=== PATIENT | male | born 1990 | race Caucasian/White ===

== ENCOUNTER 2018-07-14 23:51 | Emergency (ER) | payer SELFPAY ==
[2018-07-15] MEDS ORDERED: LIDOCAINE 1%/EPINEPHRINE INJ 20 ML VIAL INJ ONE (00:21)
--- NOTE | 2018-07-15 01:00 | ER Document Report ---
ED General - General Chief Complaint: Laceration Stated Complaint: FINGER LACERATION Time Seen by Provider: 07/15/18 00:54 Notes: Patient is a 27-year-old male who presents after sustaining a laceration to the volar pad of his left middle finger. This occurred when he accidentally stuck himself with a razor blade that was open in his pocket after he reached into the pocket. He states that since that time there has been active bleeding from the area which he has attempted to control with direct pressure with moderate success. He does note a severe, throbbing, constant pain to the area. Touching the area worsens the pain. Nothing improves the pain. No history of similar injuries in the past. He has had a tetanus shot within the last 1 year. He denies any additional injuries or concerns. - Related Data Allergies/Adverse Reactions: amoxicillin Allergy (Verified 07/15/18 00:51) Past Medical History - General Information source: Patient - Social History Smoking Status: Current Every Day Smoker Chew tobacco use (# tins/day): No Frequency of alcohol use: None Drug Abuse: None Lives with: Family Family History: Reviewed & Not Pertinent Patient has suicidal ideation: No Patient has homicidal ideation: No Renal/ Medical History: Denies: Hx Peritoneal Dialysis Review of Systems - Review of Systems Notes: Constitutional: Negative for fever. Eyes: Negative for visual changes. ENT: Negative for facial injury Cardiovascular: Negative for chest injury. Respiratory: Negative for shortness of breath. Gastrointestinal: Negative for abdominal injury. Genitourinary: Negative for genital injury Musculoskeletal: Positive for left third digit injury Skin: Positive for laceration/abrasions. Neurological: Negative for head injury. Physical Exam - Vital signs Notes: PHYSICAL EXAMINATION: GENERAL: Appears to be in pain but no acute distress HEAD: Atraumatic, normocephalic. EYES: sclera anicteric, conjunctiva are normal. ENT: Moist mucous membranes. NECK: Normal range of motion LUNGS: Normal work of breathing HEART: 2+ radial pulses bilaterally EXTREMITIES: Full flexion extension against resistance at the DIP, PIP and MCP of the left third digit. NEUROLOGICAL: No focal neurological deficits. Moves all extremities spontaneously and on command. PSYCH: Moderately anxious SKIN: Warm, Dry, normal turgor, there is a 1 cm irregular laceration over the volar pad of the left middle finger with active bleeding Course - Re-evaluation Re-evalutation: 07/15/18 00:59 Patient presented with a 1 cm laceration of the volar pad of the left third digit with profuse bleeding. The wound was anesthetized with lidocaine, rapidly closed due to bleeding with 3 stitches without complication. RMU motor and sensory distribution intact. Full flexion extension of the DIP, PIP and MCP against resistance. No evidence of a tendinous or neurovascular injury. Wound was irrigated copiously prior to closure. No risk for foreign body as this was a knife laceration. No indication for x-ray. At this time will discharge with return precautions and follow-up recommendations. Verbal discharge instructions given a the bedside and opportunity for questions given. Medication warnings reviewed. Patient is in agreement with this plan and has verbalized understanding of return precautions and the need for primary care follow-up in the next 24-72 hours. Procedures - Laceration/Wound Repair Left 3rd digit Wound length (cm): 1 Wound's Depth, Shape: Superficial, Irregular Laceration pre-procedure: Sterile PPE donned Anesthetic type: 1% Lidocaine Volume Anesthetic (mLs): 1 Wound explored: Clean Irrigated w/ Saline (mLs): 500 Wound Debrided: Moderate Wound Repaired With: Sutures Suture Size/Type: 5:0, Prolene Number of Sutures: 4 Layer Closure?: No Post-procedure wound care: Sterile dressing applied Post-procedure NV exam normal: Yes Complications: No Discharge - Discharge Clinical Impression: Laceration of left middle finger Qualifiers: Encounter type: initial encounter Damage to nail status: without damage Foreign body presence: without foreign body Qualified Code(s): S61.213A - Laceration without foreign body of left middle finger without damage to nail, initial encounter Condition: Good Disposition: HOME, SELF-CARE Additional Instructions: Please return to your primary doctor, the ED, or an urgent care in 7 days for suture removal. Return immediately if you develop spreading redness around the wound, pus from the wound, worsening pain, or a fever of >100.4. Keep the area clean and dry. Wash gently with soap and water twice daily and cover with antibiotic ointment.
== END 2018-07-15 01:05 | disposition home or self-care (01) ==
LOC: ER 23:51
DX: S61.213A Laceration without foreign body of left middle finger without damage to nail, initial encounter (principal); W45.8XXA Other foreign body or object entering through skin, initial encounter; Y93.89 Activity, other specified; F17.200 Nicotine dependence, unspecified, uncomplicated; Z88.0 Allergy status to penicillin
CPT/HCPCS: 99282; 12001; J3490